=== PATIENT | female | born 1980 | race Asian ===

== ENCOUNTER 2017-04-04 08:32 | Emergency (ER) | payer OTHER ==
[~2017-04-04] VITALS: Ht 152.4 cm; Wt 83.5 kg
--- NOTE | 2017-04-04 08:42 | NUR ---
SELF PRESENT TO ED FOR HEART PALPITATIONS SINCE YESTESDAY. PATIENT IS AAO4. APPEARS IN NO APPARENT DISTRESS. RESPIRATION EVEN AND UNLABORED. SKIN IS WARM TO TOUCH AND NON DIAPHORETIC. PATIENT IS AFEBRILE. NO SOB. NO CHEST PAIN. VSS. ASSISTED PT TO ED 04
--- NOTE | 2017-04-04 09:55 | NUR ---
IV ACCESS STARTED. BLOOD DRAWN FOR LABS, SENT.
[2017-04-04 10:00] LABS: BASOPHILS % (AUTO) 0.8 % (0.0-2.0); EOSINOPHILS # (AUTO) 0.1 /CMM (0.0-0.7); EOSINOPHILS % (AUTO) 1.5 % (0.0-6.0); HEMATOCRIT 42 % (33-45); HEMOGLOBIN 13.3 g/dL (11.5-14.8); LYMPHOCYTES % (AUTO) 55.3 % (20.0-44.0); MEAN CORPUSCULAR HEMOGLOBIN 27 PG (26.0-33.0); MEAN CORPUSCULAR HGB CONC 32 g/dl (31.0-36.0); MEAN CORPUSCULAR VOLUME 83 fL (82-100); MONOCYTES # (AUTO) 0.3 /CMM (0.1-1.30); MONOCYTES % (AUTO) 5.6 % (2.0-12.0); NEUTROPHILS % (AUTO) 36.8 % (43.0-81.0); PLATELET COUNT (AUTO) 257 /CMM (150-450); RDW COEFFICIENT OF VARIATION 12.4 (11.5-15.0); RED BLOOD CELL COUNT(AUTO) 5.02 MIL/uL (4.0-5.2); WHITE BLOOD COUNT (AUTO) 5.4 K/uL (4.3-11.0)
--- NOTE | 2017-04-04 10:05 | NUR ---
UA SENT TO LAB
[2017-04-04 10:10] LABS: CALCIUM, SERUM 8.9 mg/dL (8.5-10.1); CREATININE 0.8 mg/dL (0.6-1.3); POTASSIUM 3.7 mmol/L (3.5-5.1)
[2017-04-04 10:11] LABS: MAGNESIUM 1.8 mg/dL (1.8-2.4)
[2017-04-04 10:20] LABS: TROPONIN I < 0.017 ng/mL (0.00-0.056)
--- NOTE | 2017-04-04 10:30 | NUR ---
IV removed. Catheter intact and site benign. Pressure and 4x4 applied to site. No bleeding noted.
--- NOTE | 2017-04-04 10:38 | NUR ---
Patient discharged to home in stable condition. Written and verbal after care instructions given. Patient verbalizes understanding of instruction.
[2017-04-04 10:40] VITALS: BP 132/74
== END 2017-04-04 10:40 | disposition home or self-care (01) ==
LOC: ER 08:35
DX: R00.2 Palpitations (principal); I49.1 Atrial premature depolarization; Z90.89 Acquired absence of other organs
CPT/HCPCS: 36415; 71010-TC; 80048-TC; 83735-TC; 84484-TC; 84703-TC; 85025-TC; A4606; Z7610